=== PATIENT | male | born 1985 | race Caucasian/White ===

== ENCOUNTER 2020-04-11 21:36 | Emergency (ER) | payer OTHER ==
[~2020-04-11] VITALS: Ht 180.3 cm; Wt 102.7 kg
[2020-04-11 21:36] VITALS: BP 129/92
[2020-04-11] MEDS ORDERED: METH4TAB2 PO (21:59)
--- NOTE | 2020-04-11 21:59 | PHYS DOC ---
Past History Past Medical History: No Pertinent History Past Surgical History: No Surgical History Smoking: Non-smoker Alcohol Use: None General Adult EDM: Chief Complaint: SKIN RASH/ABSCESS HPI: HPI: Patient is a 35 year old male who presents for evaluation of bilateral sunburned skin with blisters and now developing itching skin rash to the back of both of his hands. Patient currently lives at the [facility] which [facility] a [facility] house. There is concerned that he may have been exposed to scabies. However the rash is isolated to his hands only and nowhere else on his body. Patient is otherwise benign-appearing and has no other complaints. Patient had been trying aloe to help with his skin taylor Review of Systems: Review of Systems: Constitutional: Denies fever or chills Eyes: Denies change in visual acuity HENT: Denies nasal congestion or sore throat Respiratory: Denies cough or shortness of breath Cardiovascular: Denies chest pain or edema GI: Denies abdominal pain, nausea, vomiting, bloody stools or diarrhea : Denies dysuria Musculoskeletal: Denies back pain or joint pain Integument: rash both forearms Neurologic: Denies headache, focal weakness or sensory changes Endocrine: Denies polyuria or polydipsia Lymphatic: Denies swollen glands Psychiatric: Denies depression or anxiety Heart Score: Risk Factors: Risk Factors: DM, Current or recent (<one month) smoker, HTN, HLP, family history of CAD, obesity. Risk Scores: Score 0 - 3: 2.5% MACE over next 6 weeks - Discharge Home Score 4 - 6: 20.3% MACE over next 6 weeks - Admit for Clinical Observation Score 7 - 10: 72.7% MACE over next 6 weeks - Early Invasive Strategies Physical Exam: PE: Constitutional: Well developed, well nourished, mild acute distress, non-toxic appearance. [] HENT: Normocephalic, atraumatic, bilateral external ears normal, oropharynx moist, no oral exudates, nose normal. [] Eyes: conjunctiva normal, no discharge. [] Neck: Normal range of motion, no tenderness, supple. [] Cardiovascular:Heart rate regular rhythm, no murmur [] Lungs & Thorax: Bilateral breath sounds clear to auscultation [] Abdomen: Bowel sounds normal, soft, no tenderness, no masses, no pulsatile masses. [] Skin: Warm, dry, peeling sunburn skin rash both forearms, nonspecific itching dermatitis to both back of hand. [] Back: No tenderness. [] Extremities: No tenderness, no cyanosis, no clubbing, ROM intact, mild edema to back of both arms at the sunburn site [] Neurologic: Alert and oriented, normal motor function, normal sensory function, no focal deficits noted. [] Psychologic: Affect normal, judgement normal, mood normal. [] EKG: EKG: [] Radiology/Procedures: Radiology/Procedures: [] Course & Med Decision Making: Course & Med Decision Making Pertinent Labs and Imaging studies reviewed. (See chart for details) [] Dragon Disclaimer: DragQuirky Disclaimer: This electronic medical record was generated, in whole or in part, using a voice recognition dictation system. [id number] Stable, I do not think pt has obvious scabies. He has a non-specific dermatitis from the recovery of his moderate sunburn Departure Departure: Impression: Primary Impression: Sunburn, blistering Additional Impression: Dermatitis Disposition: HOME/RESIDENCE PRIOR TO ADM Condition: STABLE Referrals: PCP,NO (PCP) Patient Instructions: Hand Dermatitis, Sunburn, [id number] Additional Instructions: keep using aloe on your sunburned areas, for itching it is ok to take benadryl. Script for steriod pack given as well Scripts Methylprednisolone (MEDROL) 4 Mg Tab.ds.pk 1 PKG PO UD for itching skin rash, #1 PKG Prov: ADEBAYO FARIAS DO 04/11/20 Justification of Admission: Justification of Admission: Justification of Admission Dx: N/A ADEBAYO FARIAS DO Apr 11, 2020 21:59
[2020-04-11] MEDS ORDERED: predniSONE 20 MG TABLET PO ONE (22:30)
[2020-04-11] MEDS ORDERED: diphenhydrAMINE HCL 25 MG CAPSULE PO ONE (22:30)
== END 2020-04-11 22:12 | disposition home or self-care (01) ==
LOC: ER 21:36
DX: L55.1 Sunburn of second degree (principal); L30.9 Dermatitis, unspecified
CPT/HCPCS: 99283; J7512; Q0163